=== PATIENT | female | born 1980 | race Caucasian/White ===

== ENCOUNTER → 2017-02-01 | Outpatient (CLI) | payer OTHER ==
[~2017-02-01] MED LIST: CIPRO PO; LORTAB 5/500 TA1 TA1 PO; MOTRIN400 MG PO; NO MEDICATIONS; NORCO 5/325 TAB1 TAB PO; PHENERGAN25 MG PO; VICODIN 5/500 T1 TAB PO
--- NOTE | ~2017-02-01 | US98 ---
[facility] A Service of [facility] RADIOLOGY TEXT RESULTS PATIENT: HUMBERTO BARNETT LOCATION: [facility] : [birth year] UNIT #: [id number] AGE: [address]: SHY SHAH SEX: F ORDER DR: [id number] [facility] [address] [place], [place] [address] [id number] O MR#: [id number] Acc #: [id number] NAME: HUMBERTO BARNETT : 1980 SEX: F STUDY DATE/TIME: 02/01/2017 13:19 UNIT: [facility] ROOM: STUDY DESCRIPTION: US Pelvic Non-OB Complete Attending Physician: Shy Shah M.D. Ordering Physician: Shy Shah M.D. Primary Care Physician: Peña Mccall Pa-C MEDICAL IMAGING REPORT This report is preliminary unless electronic signature is present EXAM Pelvic ultrasound transabdominal and transvaginal technique. DATE OF EXAM 02/01/2017 INDICATIONS 36-year-old female with heavy menstrual cycles have been ongoing for 2 years, and have been painful and irregular. TECHNIQUE Sonographic imaging of the pelvis was performed transabdominally and then transvaginally for better evaluation of the adnexa and ovarian structures. COMPARISON No comparisons. FINDINGS TRANSABDOMINAL IMAGING: Uterine dimensions are about 9.5 x 3.8 x 5.7 cm. Both ovaries are seen transabdominally but better characterized transvaginally. TRANSVAGINAL IMAGING: Uterine dimensions are about 8.2 x 4.1 x 5.1 cm. Endometrial stripe measures about 7-8 mm. Ovaries demonstrate good flow, and small follicles bilaterally. The right ovary measures up to approximately 3.8 cm and the left up to approximately 2.6 cm. No adnexal mass, free fluid or drainable fluid collection. IMPRESSION Negative pelvic ultrasound. Incidental nabothian cyst in the cervix. Dictated by... [facility] A Service of [facility] RADIOLOGY TEXT RESULTS PATIENT: HUMBERTO BARNETT LOCATION: [facility] : [birth year] UNIT #: [id number] AGE: [address]: SHY SHAH SEX: F ORDER DR: Dorian Camarena M.D. THIS IS AN ELECTRONICALLY VERIFIED REPORT Dorian Camarena M.D. at 02/02/2017 11:20 AM Paramjit TD: 02/01/2017 23:00 JOB #: [id number] MEDICAL IMAGING REPORT COPY
== END | disposition home or self-care (01) ==
LOC: CWCC 13:02
DX: N92.0 Excessive and frequent menstruation with regular cycle (principal)
CPT/HCPCS: 76830; 76856

== ENCOUNTER 2017-04-05 14:26 | Emergency (ER) | payer OTHER ==
[2017-04-05 13:43] LABS: BASOPHIL% 0.4 % (0-2.5); EOSINOPHIL# 0.1 X10e3 (0-0.7); EOSINOPHIL% 1.5 % (0.0-7.0); HEMATOCRIT 37.7 % (35.0-45.0); HEMOGLOBIN 12.1 gm/dL (12.0-16.0); LYMPHOCYTE# 1.2 X10e3 (1.0-3.5); LYMPHOCYTE% 24.7 % (17.0-45.0); MEAN CORPUSCULAR HEMOGLOBIN 30.9 PG (28-34); MEAN CORPUSCULAR HGB CONC 32.2 g/dL (30-36); MEAN PLATELET VOLUME 7.2 FL (6.5-11.5); MONOCYTE# 0.5 X10e3 (0-1.0); MONOCYTE% 10.9 % (3.0-12.0); NEUTROPHIL% 62.5 % (40-75); PLATELET COUNT 270 X10e3 (140-420); RED BLOOD COUNT 3.93 X10e (3.90-5.30); RED CELL DISTRIBUTION WIDTH 13.1 % (11.0-15.5); WHITE BLOOD COUNT 4.8 X10e3 (4.0-10.5)
[2017-04-05 13:44] LABS: DIFF IND NO
[2017-04-05 14:04] LABS: URINE SOURCE CLEAN CATCH
[2017-04-05 14:07] LABS: ALBUMIN SERUM 4.5 g/dL (3.5-5.0); ALKALINE PHOSPHATASE 45 U/L (32-92); ALT (SGPT) 27 U/L (10-40); AST (SGOT) 30 U/L (10-42); BILIRUBIN,TOTAL 0.5 mg/dL (0.2-2.0); BLOOD UREA NITROGEN 12 mg/dL (9-23); CALCIUM SERUM 9.5 mg/dL (8.4-10.2); CARBON DIOXIDE 27 mmol/L (22-31); CHLORIDE 101 mmol/L (100-111); CREATININE SERUM 0.6 mg/dL (0.6-1.4); GLOM FILT RATE Estimated 116.4 mL/min (>60); GLUCOSE FASTING 97 mg/dL (70-110); POTASSIUM 4.8 mmol/L (3.5-5.1); PROTEIN TOTAL SERUM 7.5 g/dL (6.0-8.3); SODIUM 135 mmol/L (135-145)
[2017-04-05 14:08] LABS: BILIRUBIN, DIRECT <0.1 mg/dL (0.0-0.2); BILIRUBIN,INDIRECT 0.4 mg/dL (0.0-0.9)
[2017-04-05 14:16] LABS: URINE APPEARANCE CLEAR; URINE BILIRUBIN NEG (NEG); URINE BLOOD TRACE (NEG); URINE COLOR YELLOW; URINE GLUCOSE NEG (NEG); URINE KETONE NEG (NEG); URINE LEUKOCYTE ESTERASE NEG (NEG); URINE NITRATE NEG (NEG); URINE PH 5.5 (5-8); URINE PROTEIN NEG (NEG); URINE UROBILINOGEN 0.2 MG/DL (NEG)
[2017-04-05 14:18] LABS: CULTURE INDICATED? NO; URBCS1 AUWI 0-2 /[HPF] (0-2); URINE BACTERIA AUWI NEG (NEGATIVE); URINE SQUAMOUS EPITHELIAL CELL NONE SEEN /[HPF]; UWBCS1 AUWI 0-2 (0-5)
[2017-04-09 11:39] LABS: CHLAMYDIA TRACH Not Detected (Not Detected); N GONOR Not Detected (Not Detected)
== END 2017-04-05 15:00 | disposition home or self-care (01) ==
LOC: CED 14:26
PROVIDERS: Emergency Medicine
DX: N93.9 Abnormal uterine and vaginal bleeding, unspecified (principal)
CPT/HCPCS: 80048; 80076; 81003; 85025; 87491; 87591; 87808; 87905; 96361; 96374; 96375; 99284; J1885; J2405

== ENCOUNTER 2017-04-10 12:51 | Emergency (ER) | payer OTHER ==
[2017-04-10 13:28] LABS: URINE SOURCE CLEAN CATCH
[2017-04-10 13:33] LABS: URINE APPEARANCE CLEAR; URINE BILIRUBIN NEG (NEG); URINE BLOOD NEG (NEG); URINE COLOR YELLOW; URINE GLUCOSE NEG (NEG); URINE KETONE NEG (NEG); URINE LEUKOCYTE ESTERASE 2+ (NEG); URINE NITRATE NEG (NEG); URINE PH 6.5 (5-8); URINE PROTEIN NEG (NEG); URINE UROBILINOGEN 0.2 MG/DL (NEG)
[2017-04-10 13:37] LABS: CULTURE INDICATED? YES; URBCS1 AUWI 0-2 /[HPF] (0-2); URINE BACTERIA AUWI 1+ (NEGATIVE); URINE SQUAMOUS EPITHELIAL CELL FEW /[HPF]
== END 2017-04-10 14:07 | disposition home or self-care (01) ==
LOC: CFTX 12:51 → CED 12:51 → CFTX 13:57
PROVIDERS: Physician Assistant
DX: N30.00 Acute cystitis without hematuria (principal); K62.89 Other specified diseases of anus and rectum; Z98.51 Tubal ligation status; Z88.8 Allergy status to other drugs, medicaments and biological substances
CPT/HCPCS: 81003; 84703; 87086; 99283